=== PATIENT | female | born 1945 | race Two or more races ===

== ENCOUNTER → 2025-11-22 06:37 | Outpatient (REF) | payer MEDICARE, OTHER, SELFPAY | LOC: MRI 06:37 | PROVIDERS: ATTENDING PHYSICIAN Physician Assistant Surgical; FAMILY PHYSICIAN Family Medicine | DX: M54.16 Radiculopathy, lumbar region (principal); M54.59 Other low back pain; M47.816 Spondylosis without myelopathy or radiculopathy, lumbar region | CPT/HCPCS: 72148 ==